=== PATIENT | female | born 1980 | race Caucasian/White ===

== ENCOUNTER 2016-08-21 12:49 | Emergency (ER) | payer OTHER ==
[2016-08-21 12:53] VITALS: BP 112/65; PULSE 87; TEMP 98.2; BMI 29.2
[2016-08-21] MEDS ORDERED: ACETAMINOPHEN 325 MG TABLET (FP) PO ONE (13:07)
[2016-08-21] MEDS ORDERED: ACETAMINOPHEN 325 MG TABLET (FP) ONE (13:08)
--- NOTE | 2016-08-21 13:09 | PDOC ---
History of Present Illness - General History Source: Patient <Deena Coronado S - Last Filed: 08/21/16 14:12> - General History Source: Patient Exam Limitations: No Limitations - History of Present Illness Initial Comments: 08/21/16 15:07 The patient is a 35 year old female, with no significant past medical history who presents to the emergency department with s/p mechanical fall last night. She denies any LOC and head trauma. The patient reports after the fall sustaining injuries to her left shoulder , wrist, and elbow. 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 She denies any numbness and tingling in her lower extremities. She reports since the injury the pain has been getting much worse. She denies fever, chills, headache and dizziness. She denies nausea, vomit, diarrhea and constipation. Allergies: NKDA Past surgical history: denies Social history: denies EtOh, drug, and tobacco use. <Hao Wilkins - Last Filed: 08/21/16 15:19> - General Chief Complaint: Pain, Acute Stated Complaint: LEFT ARM /SHLD PAIN Time Seen by Provider: 08/21/16 13:01 Past History - Past Medical History Other medical history: DENIES - Psycho/Social/Smoking Cessation Hx Anxiety: No Suicidal Ideation: No Smoking History: Never smoked Have you smoked in the past 12 months: No Hx Alcohol Use: No Drug/Substance Use Hx: No Substance Use Type: None <Deena Coronado S - Last Filed: 08/21/16 14:12> <Hao Wilkins - Last Filed: 08/21/16 15:19> - Past Medical History Allergies/Adverse Reactions: Allergies Allergy/AdvReac Type Severity Reaction Status Date / Time No Known Allergies Allergy Verified 08/21/16 12:50 Home Medications: Ambulatory Orders NK [No Known Home Medication] 06/27/15 Review of Systems - Review of Systems Constitutional: No: Chills, Fever, Weakness HEENTM: No: Eye Pain, Blurred Vision, Hearing Loss, Throat Swelling Respiratory: No: Shortness of Breath, Wheezing, Productive cough Cardiac (ROS): No: Chest Pain, Edema, Palpitations, Syncope ABD/GI: No: Constipated, Diarrhea, Nausea, Vomiting : No: Burning, Dysuria, Frequency, Flank Pain Musculoskeletal: Yes: Joint Pain (Left wrist, left elbow, and left shoulder). No: Back Pain, Neck Pain Neurological: No: Headache, Numbness, Seizure, Tingling, Tremors, Weakness, Dizziness Psychiatric: No: Anxiety, Depression <Hao Wilkins - Last Filed: 08/21/16 15:19> *Physical Exam - Vital Signs Last Vital Signs Temp Pulse Resp BP Pulse Ox 98.2 F 87 18 112/65 100 08/21/16 12:50 08/21/16 12:50 08/21/16 12:50 08/21/16 12:50 08/21/16 12:50 <TheronDeena stevenson S - Last Filed: 08/21/16 14:12> - Vital Signs Last Vital Signs Temp Pulse Resp BP Pulse Ox 98.2 F 87 18 112/65 100 08/21/16 12:50 08/21/16 12:50 08/21/16 12:50 08/21/16 12:50 08/21/16 12:50 - Physical Exam General Appearance: Yes: Nourished, Appropriately Dressed. No: Apparent Distress HEENT: positive: EOMI, RICH, Normal ENT Inspection, Normal Voice, Symmetrical, TMs Normal, Pharynx Normal Neck: positive: Supple. negative: Tender Respiratory/Chest: positive: Lungs Clear, Normal Breath Sounds. negative: Chest Tender, Respiratory Distress, Accessory Muscle Use Cardiovascular: positive: Regular Rhythm, Regular Rate Gastrointestinal/Abdominal: positive: Normal Bowel Sounds, Flat, Soft. negative : Tender, Organomegaly, Pulsatile Mass Musculoskeletal: positive: Normal Inspection. negative: CVA Tenderness Extremity: positive: Normal Capillary Refill, Normal Inspection, Normal Range of Motion, Tender (with palpation and with passive and active movement on left shoudler, left elbow, and left wrist.). negative: Erythema, Inflammation Integumentary: positive: Normal Color, Dry, Warm Neurologic: positive: tar leveler II-XII NML intact, Fully Oriented, Alert, Normal Mood/ Affect, Normal Response, Motor Strength 5/5 <Hao Wilkins - Last Filed: 08/21/16 15:19> ED Treatment Course - RADIOLOGY Radiograph Interpretation: 08/21/16 15:19 I have reviewed her x-rays of her LEFT shoulder, wrist, and elbow: Normal study. - Medications Given in the ED: ED Medications Discontinued Medications Generic Name Dose Route Start Last Admin Trade Name Brooke PRN Reason Stop Dose Admin Acetaminophen 650 mg 08/21/16 13:07 08/21/16 13:13 Tylenol - PO 08/21/16 13:08 650 mg ONCE ONE Administration <Hao Wilkins - Last Filed: 08/21/16 15:19> Medical Decision Making - Medical Decision Making 08/21/16 15:16 Sling was applied to the LEFT arm, was given anti-inflammatory medication, and was discharged home with the diagnosis of a LEFT shoulder contusion. Patient was given a list of orthopedist and advised to follow up with an orthopedist. <Hao Wilkins - Last Filed: 08/21/16 15:19> *DC/Admit/Observation/Transfer - Discharge Dispostion Admit: No <Deena Coronado - Last Filed: 08/21/16 14:12> - Attestations Scribe Attestion: 08/21/16 15:16 Documentation prepared by Hao Wilkins, acting as biomedical equipment technician for Deena Coronado MD. <Hao Wilkins - Last Filed: 08/21/16 15:19> Diagnosis at time of Disposition: Contusion of arm, left Qualifiers: Encounter type: initial encounter Qualified Code(s): S40.022A - Contusion of left upper arm, initial encounter - Discharge Dispostion Disposition: HOME Condition at time of disposition: Stable - Referrals Referrals: Eze Vazquez MD [Staff Physician] - - Patient Instructions Printed Discharge Instructions: How to Use a Sling, Contusion
== END 2016-08-21 14:19 | disposition home or self-care (01) ==
LOC: FER 12:49
DX: S40.022A Contusion of left upper arm, initial encounter (principal); W18.39XA Other fall on same level, initial encounter; Y93.89 Activity, other specified; Y92.9 Unspecified place or not applicable
CPT/HCPCS: 73030-TC-LT; 73070-TC-LT; 73110-TC-LT; 99282-25